=== PATIENT | female | born 1960 | race Caucasian/White ===

== ENCOUNTER 2024-03-18 13:58 | Emergency (ER) | payer MEDICAID, OTHER ==
[~2024-03-18] VITALS: Ht 154.9 cm; Wt 72.2 kg
[2024-03-18 14:55] VITALS: BP 138/86; PULSE 92; TEMP 98
[2024-03-18] MEDS: methylPREDNISolone SOD SUCC 125 MG/2 ML VL IM ONE (14:58)
[2024-03-18] MEDS: IPRATROPIUM BROM 0.5 MG/2.5ML INH SOL NEB ONE (15:18)
[2024-03-18] MEDS: ALBUTEROL SULF 2.5 MG/0.5ML(0.5%) NEB SOLN NEB ONE (15:19)
[2024-03-18 15:22] VITALS: RESP 14; O2SAT 97
[2024-03-18] MEDS ORDERED: PRED20TA2 PO (15:39)
[2024-03-18] MEDS ORDERED: ALB5IS NEB (15:39)
[2024-03-18] MEDS ORDERED: AZIT-185 PO (15:39)
== END 2024-03-18 15:42 | disposition home or self-care (01) ==
LOC: ER 13:58
DX: J45.901 Unspecified asthma with (acute) exacerbation (principal); J20.9 Acute bronchitis, unspecified
CPT/HCPCS: 71045; 94640; 96372; 99283; J2919; J7644

== ENCOUNTER 2024-05-01 19:02 | Inpatient (IN) | payer MEDICAID ==
[~2024-05-01] VITALS: Ht 160 cm; Wt 73.0 kg
[~2024-05-01 19:02] MED LIST: ALB5IS NEB; AZIT-185 PO; PRED20TA2 PO
[2024-05-01 20:03] LABS: Basophils # (auto) 0.1 10 ^3/uL (0-0.2); Eosinophils # (auto) 0.1 10 ^3/uL (0-0.8); Eosinophils % (auto) 0.9 % (0.0-7.0); Hematocrit 39.6 % (36.0-46.0); Hemoglobin 13.3 g/dL (12.2-16.2); Lymphocytes # (auto) 3.3 10 ^3/uL (0.4-5.4); Lymphocytes % (auto) 40.6 % (10.0-50.0); Mean Corpuscular Hemoglobin 30.6 pg (28.0-32.0); Mean Corpuscular Hgb Conc. 33.6 g/dL (32.0-36.0); Mean Corpuscular Volume 91.2 fL (80.0-100.0); Monocytes # (auto) 0.5 10 ^3/uL (0-1.3); Neutrophils # (auto) 4.2 10 ^3/uL (1.6-8.6); Neutrophils % (auto) 51.5 % (37.0-80.0); Red Blood Cells 4.35 10^6/uL (4.0-5.20); Red Cell Distribution Width 14.1 % (11.8-14.3); White Blood Cell 8.2 10^3/uL (4.4-10.8)
[2024-05-01 20:17] LABS: Chloride 106 mmol/L (98-107); Potassium 3.6 mmol/L (3.5-5.1); Sodium 142 mmol/L (136-145)
[2024-05-01 20:18] LABS: Anion Gap 11 (5-15); Calcium 10.1 mg/dL (8.7-10.4); Carbon Dioxide 25 mmol/L (20-30)
[2024-05-01 20:23] LABS: BUN/Creatinine Ratio 13.5 (10.0-20.0); Blood Urea Nitrogen 12 mg/dL (9-23); Glucose 97 mg/dL (74-106)
[2024-05-01 20:29] LABS: Urine Bacteria None Seen /hpf (None Seen)
[2024-05-01] MEDS: SODIUM CHLORIDE 0.9% 1,000 ML IV ONE (20:55)
[2024-05-01] MEDS: ACETAMINOPHEN 325 MG TAB PO ONE (20:55)
[2024-05-01] MEDS: IOHEXOL 300 MG/ML 100ML BOTTLE IJ ONE (20:55)
[2024-05-01] MEDS: ONDANSETRON HCL 4 MG/2 ML VIAL IV ONE (20:55)
[2024-05-01 21:07] LABS: Urine Blood TRACE /uL (Negative); Urine Clarity Clear (Clear); Urine Color Yellow (Yellow); Urine Mucus FEW (None Seen); Urine Protein, UAD TRACE (Negative); Urine Urobilinogen Normal (Negative); Urine WBC 2 /hpf (0 - 5)
[2024-05-01] MEDS: MORPHINE SULFATE 4 MG/ML SYR/VIAL IV ONE (21:11)
[2024-05-02 03:30] VITALS: BP 135/76; PULSE 71; RESP 16; TEMP 97.9; O2SAT 99
[2024-05-02] MEDS ORDERED: HYDROcodone-ACET 5/325MG TAB PO PRN (03:30)
[2024-05-02] MEDS ORDERED: ACETAMINOPHEN 325 MG TAB PO PRN (03:30)
[2024-05-02] MEDS ORDERED: ONDANSETRON HCL 4 MG/2 ML VIAL IV PRN (03:30)
[2024-05-02 09:39] VITALS: PULSE 74
[2024-05-02 09:48] VITALS: PULSE 76; RESP 18; O2SAT 96
[2024-05-02] MEDS: ALBUTEROL SULF 2.5 MG/0.5ML(0.5%) NEB SOLN NEB PRN (09:48)
[2024-05-02 09:54] VITALS: PULSE 77; RESP 18; O2SAT 100
[2024-05-02] MEDS: MORPHINE SULFATE INJ 2 MG/ml SYRG IV PRN (14:47)
[2024-05-02 18:43] VITALS: BP 110/64; PULSE 74; RESP 20; TEMP 99.4; O2SAT 96
== END 2024-05-02 20:14 | disposition left against medical advice (07) | DRG 532 ==
LOC: ER 19:02 → OVERFLOW 05-02 03:25
PROVIDERS: ADMIT Nurse Practitioner; ATTEND Family Medicine
DX: N81.3 Complete uterovaginal prolapse (principal); J45.909 Unspecified asthma, uncomplicated; Z53.29 Procedure and treatment not carried out because of patient's decision for other reasons
CPT/HCPCS: 36415; 80048; 81001; 82962; 85025; 94640; 96374; 96375; G0378; J2405

== ENCOUNTER 2024-05-05 09:21 | Emergency (ER) | payer MEDICAID ==
[~2024-05-05] VITALS: Ht 154.9 cm; Wt 73.1 kg
[2024-05-05 10:49] LABS: Urine Bacteria FEW /hpf (None Seen); Urine Blood 1+ /uL (Negative); Urine Clarity Turbid (Clear); Urine Color Yellow (Yellow); Urine Mucus FEW (None Seen); Urine Protein, UAD TRACE (Negative); Urine Specific Gravity 1.033 (1.001-1.035); Urine Urobilinogen Normal (Negative); Urine WBC 3 /hpf (0 - 5); Urine pH 5.5 (5.0-9.0)
[2024-05-05 12:18] VITALS: BP 132/85; PULSE 60; RESP 20; TEMP 97.9; O2SAT 96
== END 2024-05-05 12:30 | disposition home or self-care (01) ==
LOC: ER 09:21
DX: K52.9 Noninfective gastroenteritis and colitis, unspecified (principal); R10.2 Pelvic and perineal pain; J45.909 Unspecified asthma, uncomplicated; Z79.899 Other long term (current) drug therapy
CPT/HCPCS: 36415; 81001; 81025; 84702